=== PATIENT | female | born 1975 | race Caucasian/White ===

== ENCOUNTER 2024-02-04 18:33 | Emergency (ER) | payer OTHER, SELFPAY ==
[2024-02-04 18:42] VITALS: BP 123/56
[2024-02-04 19:42] LABS: % Basophils 0.4 % (0-2); % Eosinophils 1.5 % (0-6); % Immature Granulocytes 0.2 % (0-0.5); % Lymphocytes 19.1 % (20.5-51.1); % Monocytes 5.2 % (1.7-9.3); % Neutrophils 73.6 % (42.2-75.2); Absolute Eosinophils 0.1 10^3/uL (0-0.7); Absolute Lymphocytes 1.5 10^3/uL (1.2-3.4); Absolute Monocytes 0.4 10^3/uL (0.1-0.6); Absolute Neutrophils 5.9 10^3/uL (1.4-6.5); Hematocrit 37.8 % (37.0-47.0); Hemoglobin 12.9 g/dL (12.0-16.0); Mean Corp Hgb Conc. 34.1 g/dL (33.0-37.0); Mean Corpuscular Hgb 29.2 pg (27.0-31.0); Mean Corpuscular Volume 85.5 fL (81.0-99.0); Mean Platelet Volume 10.4 fL (7.4-10.4); Nucleated Red Blood Cells % 0 %; Platelet Count 248 10^3/uL (130-400); Red Blood Cell Count 4.42 10^6/uL (4.20-5.40); Red Cell Dist. Width 12.9 % (11.5-14.5)
[2024-02-04 19:58] LABS: ALT (SGPT) 27 U/L (0-35); AST (SGOT) 24 U/L (14-36); Albumin 4.3 g/dl (3.5-5.0); Alkaline Phosphatase 58 U/L (38-126); Blood Urea Nitrogen 12 mg/dl (7-17); Calcium 9.1 mg/dl (8.4-10.2); Carbon Dioxide 28 mmol/L (22-30); Chloride 104 mmol/L (98-107); Glucose 82 mg/dl (70-99); Potassium 3.8 mmol/L (3.5-5.1); Sodium 136 mmol/L (135-145); Total Bilirubin 0.3 mg/dl (0.2-1.3); Total Protein 6.9 g/dl (6.3-8.2); eGFR > 60.00
[2024-02-04 20:00] LABS: Lipase 94 U/L (23-300)
--- NOTE | 2024-02-04 20:39 | ED.GENMED ---
History of Present Illness
General
Chief Complaint: Abdominal Symptoms
Course
Orders/Labs/Results
Orders:
Orders
02/04/24 19:30
Complete Blood Count/With Diff Urgent
Comprehensive Metabolic Panel Urgent
Lipase Urgent
Abnormal Lab Results
02/04/24
19:30
Lymphocytes % 19.1 L %
(20.5-51.1)
02/04/24 19:30
02/04/24 19:30
Vital Signs
Initial and Last Documented VS:
Initial Vital Signs
Temp Pulse Resp BP Pulse Ox
97.8 F 89 17 123/56 99
02/04/24 18:42 02/04/24 18:42 02/04/24 18:42 02/04/24 18:42 02/04/24 18:42
Last Documented Vital Signs
Temp Pulse Resp BP Pulse Ox
97.8 F 89 17 123/56 99
02/04/24 18:42 02/04/24 18:42 02/04/24 18:42 02/04/24 18:42 02/04/24 18:42
ED Attending Note
-
Portions of this chart may have been created with voice recognition software.� Occasional wrong word or��sound alike� substitutions may have occurred due to the inherent limitations of voice recognition software.
Discharge Plan
Departure
Referrals:
Donnie Hinton, [Family Provider] -
Discharge Date and Time
Print Language: TAJIK
[2024-02-04 20:44] VITALS: BP 127/61
--- NOTE | 2024-02-04 20:53 | ED.GENMED ---
History of Present Illness
General
Chief Complaint: Abdominal Symptoms
Source: patient
Exam Limitations: none
Time Seen by Provider: 02/04/24 20:44
Nursing documentation reviewed up to this point in time: agreed with
History of Present Illness
History of Present Illness:
48-year-old female with no significant chronic medical issues presents to the emergency room sent in by her primary doctor with concern for gallbladder infection. Patient reports that she has had weeks of intermittent dyspepsia and upper abdominal
discomfort. [place] discomfort and nausea that was not relieved with OTC meds. Went to emergency room at the [facility] where she had a CT abdomen pelvis as well as an upper abdominal
ultrasound and blood work; imaging showed distended gallbladder with gallbladder sludge, gallbladder wall thickening and pericholecystic fluid but she had a negative Garcia sign (this according to my review of radiology read; imaging not available
for direct review). She says that she was told 'you need to have your gallbladder out' and referred to a surgeon as an outpatient. She states that she followed up with her primary doctor today who reviewed results and told her that he was concern
for gallbladder infection and that she needed to come to the emergency room for surgical consultation. Aside from the above she denies any fevers or chills. She denies any other complaints.
Review of Systems
Review of Systems
All Other Systems: ROS reviewed and negative except as documented in HPI and ROS
Constitutional: Denies fever or chills
Respiratory: Denies trouble breathing
Cardiac: Denies chest pain
ABD/GI: Reports abdominal pain and nausea; Denies vomiting
: Denies flank pain
Musculoskeletal: Denies neck pain or back pain
Neurological: Denies dizzy, headache, weakness or numbness
Phy Exam
Physical Exam
Physical Exam:
General: Awake, alert, oriented x3; no acute distress
Head: Normocephalic, atraumatic
Eyes: Conjunctiva normal, sclera anicteric
Throat: Airway intact, handling secretions
Neck: Trachea midline
Lungs: Clear to auscultation bilaterally, no wheezing, rales, rhonchi
Heart: Regular rate and rhythm, no murmurs, gallops, or rubs
Abd: Soft, non distended, mildly tender across the upper abdomen
Neuro: No gross deficit
Extremities: Warm and well-perfused
Scores
Heart Failure Risk
Heart Failure Risk Score: Not Applicable
Heart Score for Chest Pain Patients
STEMI patient?: Not applicable
Withdrawal Assessment of Alcohol
Withdrawal Assessment Completed?: Not applicable
Course
Orders/Labs/Results
Orders:
Orders
02/04/24 19:30
Complete Blood Count/With Diff Urgent
Comprehensive Metabolic Panel Urgent
HCG, Serum Qualitative Screen Urgent
Comment: ADD ON
Lipase Urgent
02/04/24 20:52
US Abdomen Complete/Upper Urgent
Comment:
Reason For Exam: upper abd pain, h/o gallstones
02/04/24 20:53
Test Result ONCE
02/04/24 20:58
Add On- LAB Urgent
Tests Added?: HCG serum Qualitative Screen
Abnormal Lab Results
02/04/24
19:30
Lymphocytes % 19.1 L %
(20.5-51.1)
02/04/24 19:30
02/04/24 19:30
Vital Signs
Initial and Last Documented VS:
Initial Vital Signs
Temp Pulse Resp BP Pulse Ox
36.6 C 89 17 123/56 99
02/04/24 18:42 02/04/24 18:42 02/04/24 18:42 02/04/24 18:42 02/04/24 18:42
Last Documented Vital Signs
Temp Pulse Resp BP Pulse Ox
36.6 C 87 16 125/74 99
02/04/24 18:42 02/04/24 23:32 02/04/24 23:32 02/04/24 23:32 02/04/24 23:32
MDM/Problems Addressed
Differential Diagnosis Includes:
Biliary colic, cholecystitis, GERD
MDM/Problems Addressed:
48-year-old female presents for evaluation of abdominal pain and dyspepsia�symptoms have been intermittent for weeks but more consistent the past week, had abnormal imaging at ER in [place] ultimately discharged, followed up with PCP who referred
here for surgical consultation. Vital signs are normal. Physical exam as above. Plan to place an IV check labs including a CBC and a CMP, lipase, hCG. Will send for an upper abdominal ultrasound to evaluate gallbladder today. Will reassess
after the above.
Labs reviewed: CBC unremarkable, CMP no clinically significant abnormalities�LFTs and lipase notably normal. hCG negative. Upper abdominal ultrasound today shows cholelithiasis with some slight gallbladder wall thickening likely chronic
cholecystitis. Case discussed with general surgery�patient can be admitted for observation symptoms escalating but surgery would likely not be performed until Wednesday. I had a long discussion with the patient. She does not appear in distress
infection is resting quite comfortably. She describes her pain is quite mild. She is minimally tender. She has normal vitals and labs. I asked that we certainly can admit for observation and cholecystectomy on Wednesday but she does not feel that
this is necessary she wishes to leave the hospital and says that if her symptoms are persistent or worsening she will return Wednesday at which point we can obtain surgical consultation. If she feels the symptoms are mild or improving she will call
general surgery to arrange outpatient follow-up for cholecystectomy. Using shared decision making patent ultimately discharged with plan to return Wednesday if symptoms continue or worsen.
*Radiology
Radiology exam reviewed: radiology read reviewed
*Pulse Oximetry
Patient hypoxic: no
*Critical Care Note
Total Time (30-74mins, 75-104mins- exclusive of procedures): Not Applicable
Data Reviewed
Source: patient and records (Reviewed records from outside ER visit which patient has at bedside)
Patient Management
Discussion with other providers: Nuclear Auxiliary Operator (Discussed with surgery)
Escalation/DeEscalation of care consider admission/obs:
Considered admission but using shared decision making as above ultimately opted for discharge with return precautions and follow-up plan in place
ED Attending Note
-
Portions of this chart may have been created with voice recognition software.� Occasional wrong word or��sound alike� substitutions may have occurred due to the inherent limitations of voice recognition software.
Discharge Plan
Departure
Patient Disposition: Home (Routine Discharge)
Date of Disposition: 02/04/24
Time of Disposition: 23:26
Patient with high blood pressure during this ER visit?: No
Discharge Problem:
Cholecystitis, chronic
Instructions: Sallis Diet
Referrals:
Donnie Hinton DO [Family Provider] -
Jake Boss MD [Active] - Call in 1-3 days for appt (General Surgeon)
Activity Restrictions/Additional Instructions:
Thank you for visiting the Emergency Department at [facility].
1. Please schedule a follow up appointment as directed. Call first thing tomorrow morning to make an appointment.
2. If indicated, please take your medications as instructed and indicated on discharge paperwork.
3. If any of your symptoms do not improve, or persist, or become more severe within 6-12 hours, please return to the emergency department for further care.
4. Please return to the emergency department if you develop a headache, neck pain/stiffness, fever greater than 100.4F, chest pain, shortness of breath, persistent nausea, vomiting, slurred speech, difficulty walking, numbness/tingling, weakness,
signs of infection or any other symptoms that are worrisome to you.
Please call [phone] if you have any questions.
Interventions
Interventions:
*Risk Screen - Suicide Last Done: 02/04/24 20:50
*General Assessment Last Done: 02/04/24 20:50
*Neglect/Abuse Screening Last Done: 02/04/24 20:50
*Nursing Disposition Last Done: 02/04/24 23:32
AR-Lvwdaz-Arccytmpdt Assessment Last Done: 02/04/24 20:46
Discharge Date and Time
Discharge Date/Time: 02/04/24 23:33
Print Language: DUTCH
[2024-02-04 21:33] LABS: HCG, Serum Qualitative Screen Negative
[2024-02-04 23:32] VITALS: BP 125/74
== END 2024-02-04 23:33 | disposition home or self-care (01) ==
LOC: EMR 18:33
PROVIDERS: Emergency Medicine; EMERGENCY PHYSICIAN Emergency Medicine; FAMILY PHYSICIAN Internal Medicine
DX: K80.10 Calculus of gallbladder with chronic cholecystitis without obstruction (principal); K30 Functional dyspepsia; R11.0 Nausea
CPT/HCPCS: 99284; 76700; 80053; 83690; 84703; 85025

== ENCOUNTER 2024-02-07 10:30 | Emergency (ER) | payer OTHER, SELFPAY ==
[2024-02-07 11:02] VITALS: BP 120/77
--- NOTE | 2024-02-07 12:27 | ED.GENMED ---
History of Present Illness
General
Chief Complaint: Abdominal Pain
Source: patient
Time Seen by Provider: 02/07/24 11:23
History of Present Illness
History of Present Illness:
48-year-old female with no significant past medical history presenting to the emergency department for evaluation after being seen in the ER on Wednesday diagnosed with chronic cholecystitis, attempted to go home over the weekend and manage symptoms
with diet however she has had persistent pain and nausea with difficulty tolerating p.o. Patient has not eaten or drank anything since last night. She attempted to make appointment at the surgery center to have this performed but was told that the
surgery center does not do cholecystectomies. Patient still endorses some mild pain to the right upper quadrant and some nausea but otherwise feels okay presently. No new symptoms.
Past History
Past History
ED Past Medical History: None
ED Past Surgical History: Appendectomy
Social History
Tobacco: Non-smoker
Alcohol: Occasional
Drug: None
Personal: Partner
Living: with family
Review of Systems
Review of Systems
All Other Systems: ROS reviewed and negative except as documented in HPI and ROS
Phy Exam
Physical Exam
Physical Exam:
GENERAL: Alert , in no apparent distress
EYE: conjunctiva clear
Head: Normocephalic atraumatic
NECK: Supple,
ENT: mmm.
LUNGS: no acute respiratory distress
ABDOMEN: Mild ttp RUQ
NEUROLOGICAL: Alert and oriented
SKIN: Warm and dry, skin intact.
MUSCULOSKELETAL: well perfused.
PSYCH: Normal and appropriate interaction.
Scores
Heart Failure Risk
Heart Failure Risk Score: Not Applicable
Heart Score for Chest Pain Patients
STEMI patient?: Not applicable
Withdrawal Assessment of Alcohol
Withdrawal Assessment Completed?: Not applicable
Course
Orders/Labs/Results
Orders:
Orders
02/07/24 12:40
Piperacillin/Tazo 3.375 Gram [Zosyn] 3.375 gram in 50 ml IV NOW
02/07/24 12:48
Bupivacaine 0.25%Pf/Epinephrin [Sensorcaine-Epi 0.25%-0.0005] 30 ml .ROUTE .STK-MED ONE
Iohexol [Omnipaque] 50 ml .ROUTE .STK-MED ONE
02/07/24 12:52
Type+Screen Urgent
Complete Blood Count/With Diff Urgent
Comprehensive Metabolic Panel Urgent
PTT Urgent
Prothrombin Time Urgent
02/07/24 12:52
02/07/24 12:52
Vital Signs
Initial and Last Documented VS:
Initial Vital Signs
Temp Pulse Resp BP Pulse Ox
98.1 F 78 20 120/77 99
02/07/24 11:02 02/07/24 11:02 02/07/24 11:02 02/07/24 11:02 02/07/24 11:02
Last Documented Vital Signs
Temp Pulse Resp BP Pulse Ox
98.1 F 86 18 115/75 100
02/07/24 11:02 02/07/24 13:00 02/07/24 13:00 02/07/24 13:00 02/07/24 13:00
MDM/Problems Addressed
MDM/Problems Addressed:
48-year-old female presenting back to the emergency department after being seen this past Wednesday, diagnosed then with chronic cholecystitis, attempted to manage symptoms at home and have outpatient surgery however patient still very symptomatic and
uncomfortable prompting return visit to the ER today. Will reobtain new labs and consult with general surgery with anticipated plan of patient going to the OR for cholecystectomy.
*Radiology
Radiology exam reviewed: radiology read reviewed
*Pulse Oximetry
Patient hypoxic: no
*Critical Care Note
Total Time (30-74mins, 75-104mins- exclusive of procedures): Not Applicable
Patient Management
Discussion with other providers: Avionics Test Technician
Escalation/DeEscalation of care consider admission/obs:
Dr. Hurd from general surgery aware and will consult
Seen by Dr. Hurd. he believes patients symptoms could be more likely related to GERD/gastritis as opposed to cholecystitis. He is going to consult with GI to try and arrange EGD today. Treatment plan and dispo pending
Per Dr. Hurd, patient to be discharged home with continued dietary modifications. Add on protonix to medication regimen in addition to carafate she has been taking. If symptoms no better by /Wednesday to call Dr. Hurd's office and they
will ensure expedited EGD with GI next week and cholecystectomy planning pending those EGD results. Patient feels comfortable with this plan. Otherwise stable for discharge.
ED Attending Note
-
Portions of this chart may have been created with voice recognition software.� Occasional wrong word or��sound alike� substitutions may have occurred due to the inherent limitations of voice recognition software.
Discharge Plan
Departure
Patient Disposition: Home (Routine Discharge)
Date of Disposition: 02/07/24
Time of Disposition: 13:34
Patient with high blood pressure during this ER visit?: No
Discharge Problem:
Cholecystitis, chronic, Gastritis
Instructions: Gastritis (DC)
Prescriptions:
New
omeprazole 40 mg capsule,delayed release(DR/EC)
40 mg PO BID Qty: 60 0RF
No Action
clonazepam 1 mg Tablet
0.5 mg PO TID
ibuprofen [Advil] 200 mg Tablet
400 mg PO Q6HPRN PRN (Reason: mild pain)
Referrals:
Tariq Hurd MD [Active] - (If symptoms not better by /Wednesday, please call office and they will facilitate close follow up)
Interventions
Interventions:
*Risk Screen - Suicide Last Done: 02/07/24 11:02
*General Assessment Last Done: 02/07/24 11:02
*Neglect/Abuse Screening Last Done: 02/07/24 11:02
ED- Fall Risk Assessment Last Done: 02/07/24 13:51
*Nursing Disposition Last Done: 02/07/24 13:51
SE-Reuvap-Vsxitrpsdh Assessment Last Done: 02/07/24 13:00
Discharge Date and Time
Discharge Date/Time: 02/07/24 13:51
Print Language: SYRIAC
[2024-02-07 12:29] VITALS: BP 115/65
[2024-02-07 13:00] VITALS: BP 115/75
--- NOTE | 2024-02-07 13:07 | CON.GS ---
Addendum entered and electronically signed by Tariq Hurd MD 02/07/24 14:42:
Patient seen and examined.
Patient is a 48 yo F with a PMH of anxiety and s/p open appendectomy who presents with approximately 2 months of epigastric discomfort and dyspepsia. She states that she has had persistent symptoms on a daily basis and throughout the day for almost
2 months. She describes an epigastric discomfort underneath her lower sternum with direct posterior radiation to her back. She describes occasional LEFT shoulder discomfort. She denies any RUQ abdominal pain or discomfort. She denies any
association with fatty food intake; of note, she eats [employer] frequently and notes no association or worsening of symptoms. This past she had an acute worsening of her discomfort after drinking coffee while driving to [facility]. She
presented to a local ED where she underwent a CT scan which demonstrated gallstones. She was prescribed Carafate and instructed to follow-up as an outpatient. She was evaluated by her PCP on Wednesday who instructed her to present to the ED. She was
evaluated in the ER during which time labs were normal couple and ultrasound demonstrated cholelithiasis without any signs of cholecystitis, negative sonographic Garcia sign. She was told that she would not receive her cholecystectomy over the
, and was instructed to read present to the ER on Wednesday morning at 8 AM after not eating anything overnight. Currently she states that her pain has improved; she does note improvement of her symptoms with Carafate. She does have some mild
epigastric discomfort and burping. No prior PPI use. No prior EGDs. No hemoptysis or weight loss.
Gen: NAD
Abd: soft, NT/ND, non-peritoneal, negative Garcia's sign
Labs and prior imaging were reviewed.
Patient is a 48 yo F p/w dyspepsia and ultrasound findings of cholelithiasis.
No evidence of cholecystitis. Symptoms are not classic for biliary colic given the persistent epigastric nature with associated burping, lack of association with fatty food intake such as Haynes's, normal-appearing labs, and improvement with
Carafate. Recommend initial treatment for dyspepsia and gastritis with twice daily PPI and continued Carafate use. If symptoms should persist would recommend GI evaluation and EGD to rule out esophagitis or gastritis. If symptoms persist
following outpatient workup and management, would recommend cholecystectomy at that time. The natural history and pathophysiology of biliary and stone disease was discussed. We briefly discussed a laparoscopic cholecystectomy with possible
cholangiogram. The procedure itself, as well as the risks, benefits, and alternatives was discussed. Typical postprocedural recovery was discussed. Patient agrees with management strategy. All questions answered
-- PPI BID (Protonix 40 mg BID) and Carafate
-- Curbside GI, if symptoms do not improved would recommend outpatient EGD later this week or next
-- Following the above and if symptoms persist would recommend laparoscopic cholecystectomy
-- ED updated
Original Note:
Consultation
-
Requesting Provider: Sotero
Reason for Consultation: cholelithiasis
Medical History
-
Chief Complaint: burping, epigastric pain
History of Present Illness:
Ms. Wheeler is a 48 yo female with a h/o appendectomy and anxiety who presents with burping and intermittent epigastric discomfort into her mid back and left shoulder over the past few months. She had acute sharp pain on 02/02 after drinking some
coffee while driving to [facility] and presented to an emergency department in [place] for evaluation. US was done with noted gallstones and she was advised to follow up with as an outpatient. She was also given a prescription for Carafate in that ED which she
has been taking one hour before meals with some relief in symptoms although not completely. Upon returning home the following day, she saw her PCP and he recommended she present to the ED which she did at that time. Her US here was with multiple
gallstones but no cholecystitis. Her labs were normal during that visit. She was told to return today (Wednesday) for possible gallbladder surgery. On exam, the abdomen is nontender and nondistended. She notes that she eats [employer] frequently and
even higher fat meals do not flare up her symptoms. Burping has persisted as well as the discomfort in her epigastric area but she denies further pain like she experienced on 8/8.
Past Medical History
Past Medical History: Psychiatric (anxiety)
Past Surgical History: Appendectomy
Social History
Tobacco: Non-Smoker
Alcohol: Occasional
Drug: None
Family History
Family History: Reviewed & Not Pertinent
Allergies / Home Medications
Allergy/AdvReac Type Severity Reaction Status Date / Time
No Known Allergies Allergy Verified 02/07/24 11:02
�Medication �Instructions �Recorded �Confirmed �Type
clonazepam 1 mg tablet 0.5 mg PO TID 02/07/24 02/07/24 History
ibuprofen 200 mg tablet (Advil) 400 mg PO Q6HPRN PRN mild pain 02/07/24 02/07/24 History
Review of Systems
-
History Source: Patient and Family
All other systems: Negative unless noted
A 10 point review of systems was completed, and was negative except as per HPI.
Physical Exam
Vital Signs
Temp Pulse Resp BP Pulse Ox
98.1 F 86 18 115/75 100
02/07/24 11:02 02/07/24 13:00 02/07/24 13:00 02/07/24 13:00 02/07/24 13:00
Physical Exam
General: Well Developed and Well Nourished
HEENT: Moist Mucous Membranes
Respiratory: Non Labored Respirations
GI: Soft, Non Tender and Non Distended
Skin: Warm and Dry
Neuro: Awake, Alert and AO x 3
Psych: Calm
Data Reviewed
-
Ultrasound: Image Personally Visualized and interpreted, Report Reviewed by me, Discussed with Physician, Discussed with Patient and Discussed with Family
Labs: Labs Reviewed by me, Discussed with Physician, Discussed with Patient and Discussed with Family
Old Records: Reviewed
Assessment / Plan
-
48 yo female with h/o anxiety on clonazepam tid & appendectomy with a 2 month history of burping and epigastric pain with one episode of severe pain after drinking coffee 4 days ago. Multiple gallstones on prior ultrasound but no cholecystitis
present. Labs from 02/03 normal with normal CBC today. CMP still pending for today but normal on prior visit on 02/03. Abdomen is nontender on exam. Carafate was initially prescribed 4 days ago at her initial presentation and she notes this has been
helping although not completely. AFVSS.
Suspect gastritis/gerd as etiology of her symptoms vs less likely biliary colic.
No surgery planned today, would recommend close outpatient follow up
Recommend continued Carafate with addition of BID PPI. If symptoms continue to improve with these medications, plan eventual OP GI follow up (discussed case with GI) and will likely not need a cholecystectomy at this time. If no improvement, plan OP
EGD in the next 1-2 weeks for further evaluation with possible lap megan if EGD without abnormality.
OK for discharge from ED from surgical standpoint
[2024-02-07 13:21] LABS: % Basophils 0.7 % (0-2); % Eosinophils 1.3 % (0-6); % Immature Granulocytes 0.2 % (0-0.5); % Lymphocytes 24.4 % (20.5-51.1); % Monocytes 6.9 % (1.7-9.3); % Neutrophils 66.5 % (42.2-75.2); Absolute Eosinophils 0.1 10^3/uL (0-0.7); Absolute Lymphocytes 1.5 10^3/uL (1.2-3.4); Absolute Monocytes 0.4 10^3/uL (0.1-0.6); Hematocrit 38.3 % (37.0-47.0); Mean Corp Hgb Conc. 33.9 g/dL (33.0-37.0); Mean Corpuscular Hgb 29.3 pg (27.0-31.0); Mean Corpuscular Volume 86.3 fL (81.0-99.0); Mean Platelet Volume 10.3 fL (7.4-10.4); Nucleated Red Blood Cells % 0 %; Platelet Count 244 10^3/uL (130-400); Red Blood Cell Count 4.44 10^6/uL (4.20-5.40); Red Cell Dist. Width 12.9 % (11.5-14.5); White Blood Cell Count 5.9 10^3/uL (4.8-10.8)
[2024-02-07 13:32] LABS: INR 1.07; PT 13.7 Sec (11.4-14.6)
[2024-02-07 13:33] LABS: APTT 33.6 Sec (23.4-35.0)
[2024-02-07 13:37] LABS: ALT (SGPT) 25 U/L (0-35); AST (SGOT) 24 U/L (14-36); Albumin 4.3 g/dl (3.5-5.0); Alkaline Phosphatase 50 U/L (38-126); Blood Urea Nitrogen 15 mg/dl (7-17); Calcium 9.3 mg/dl (8.4-10.2); Carbon Dioxide 27 mmol/L (22-30); Chloride 103 mmol/L (98-107); Glucose 79 mg/dl (70-99); Potassium 4.3 mmol/L (3.5-5.1); Sodium 136 mmol/L (135-145); Total Protein 6.9 g/dl (6.3-8.2); eGFR > 60.00
[2024-02-07 13:53] LABS: Total Bilirubin 0.6 mg/dl (0.2-1.3)
== END 2024-02-07 13:51 | disposition home or self-care (01) ==
LOC: EMR 10:30
PROVIDERS: Physician Assistant Medical; EMERGENCY PHYSICIAN Student in an Organized Health Care Education/Training Program; FAMILY PHYSICIAN Internal Medicine
DX: K80.10 Calculus of gallbladder with chronic cholecystitis without obstruction (principal); K29.70 Gastritis, unspecified, without bleeding
CPT/HCPCS: 99283; 80053; 85025; 85610; 85730; 86850; 86900; 86901